=== PATIENT | female | born 1990 | race Caucasian/White ===

== ENCOUNTER 2016-09-09 20:04 | Emergency (ER) | payer MEDICAID ==
[2016-09-09 20:46] VITALS: BP 143/84
--- NOTE | 2016-09-09 20:51 | EDM.PDOC ---
ED HPI GENERAL MEDICAL PROBLEM - General Chief Complaint: ACOUSTICAL CARPENTER Problem Stated Complaint: spotting, positive test Time Seen by Provider: 09/09/16 20:28 Source of Information: Reports: Patient History Limitations: Reports: No limitations - History of Present Illness INITIAL COMMENTS - FREE TEXT/NARRATIVE: History of present illness: [26-year-old female coming in complaining of vaginal spotting with some small amount of cramping in the lower back. Patient indicates that she has taken urine test x3 at home with positive results and is concerned now at this juncture that she might be miscarrying. Will be evaluated.] Review of systems: As per history of present illness and below otherwise all systems reviewed and negative. Past medical history: As per history of present illness and as reviewed below otherwise noncontributory. Surgical history: As per history of present illness and as reviewed below otherwise noncontributory. Social history: No reported history of drug or alcohol abuse. Family history: As per history of present illness and as reviewed below otherwise noncontributory. Physical exam: HEENT: Atraumatic, normocephalic, pupils reactive, negative for conjunctival pallor or scleral icterus, mucous membranes moist, throat clear, neck supple, nontender, trachea midline. Lungs: Clear to auscultation, breath sounds equal bilaterally, chest nontender. Heart: S1S2, regular, negative for clicks, rubs, or JVD. Abdomen: Soft, nondistended, nontender. Negative for masses or hepatosplenomegaly. Negative for costovertebral tenderness. Pelvis: Stable nontender. Genitourinary: Deferred. Rectal: Deferred. Extremities: Atraumatic, negative for cords or calf pain. Neurovascular unremarkable. Neuro: Awake, alert, oriented. Cranial nerves II through XII unremarkable. Cerebellum unremarkable. Motor and sensory unremarkable throughout. Exam nonfocal. Diagnostics: [Urine test negative] Therapeutics: [] Impression: [Vaginal bleeding] Plan: [Followup with ACOUSTICAL CARPENTER] Definitive disposition and diagnosis as appropriate pending reevaluation and review of above. - Related Data Allergies Allergy/AdvReac Type Severity Reaction Status Date / Time azithromycin [From Zithromax] Allergy Nausea and Verified 09/09/16 20:21 Vomiting citalopram hydrobromide Allergy Shortness Verified 09/09/16 20:21 [From Celexa] of Breath codeine Allergy Chest Pain Verified 09/09/16 20:21 shrimp Allergy Hives Uncoded 09/09/16 20:21 Home Meds: Home Meds Ibuprofen [Advil] 400 mg PO Q4H PRN 11/16/14 [History] Cyclobenzaprine [Flexeril] 10 mg PO TID PRN 07/02/15 [History] clonazePAM [Clonazepam] 1 tab PO TID PRN 07/02/15 [History] Past Medical History - Past Health History Medical/Surgical History: Denies Medical/Surgical History Cardiovascular History: Reports: Other (see below) Other Cardiovascular History: states "I was told I have an irregular heart rate. " Is not on any medications for it. Gastrointestinal History: Reports: Helicobacter pylori, PUD Other Gastrointestinal History: H pylori Genitourinary History: Reports: Pyelonephritis ACOUSTICAL CARPENTER History: Reports: Polycystic Ovaries, Other (see below) Other OB/BYN History: cyst on right ovary Musculoskeletal History: Reports: Back pain, chronic, Fracture Neurological History: Reports: Concussion, Migraines Psychiatric History: Reports: Anxiety, Depression, Panic attack Endocrine/Metabolic History: Reports: Obesity/BMI 30+ - Past Surgical History HEENT Surgical History: Reports: Other (see below) Other HEENT Surgeries/Procedures: wisdom teeth removed GI Surgical History: Reports: Cholecystectomy Endocrine Surgical History: Reports: None Neurological Surgical History: Reports: None Social & Family History - Family History Family Medical History: Noncontributory - Tobacco Use Smoking Status *Q: Current Every Day Smoker Years of Tobacco use: 12 Packs/Tins Daily: 0.5 Used Tobacco, but Quit: Yes Month Tobacco Last Used: DECEMBER - Alcohol Use Days Per Week of Alcohol Use: 0 - Recreational Drug Use Recreational Drug Use: No Drug Use in Last 12 Months: No ED ROS GENERAL - Review of Systems Review Of Systems: See Below (See history of present illness) ED EXAM, GENERAL - Physical Exam Exam: See Below (See history of present illness) Course - Vital Signs Last Recorded V/S: Last Vital Signs Temp 36.9 C 09/09/16 20:05 Pulse 94 09/09/16 20:05 Resp 16 09/09/16 20:05 BP 143/84 H 09/09/16 20:46 Pulse Ox 98 09/09/16 20:05 - Orders/Labs/Meds Orders: Active Orders 24 hr Category Date Time Status CMP [COMPREHENSIVE METABOLIC PN,CMP] [CHEM] Stat Lab 09/09/16 20:18 Ordered Labs: Laboratory Tests 09/09/16 09/09/16 Range/Units 20:31 20:35 WBC 9.8 (5.0-10.0) 10^3/uL RBC 5.01 (4.00-5.50) 10^6/uL Hgb 14.3 (12.0-16.0) g/dL Hct 42.4 (37.0-47.0) % MCV 84.6 (82.0-94.0) fL MCH 28.5 (27.0-32.0) pg MCHC 33.7 (33.0-38.0) g/dL RDW Coeff of Laura 12.5 (11.0-15.0) % Plt Count 274 (150-400) 10^3/uL Neut % (Auto) 66.9 (35-85) % Lymph % (Auto) 23.1 (10-55) % [place] % (Auto) 7.0 (0-16) % Eos % (Auto) 2.8 (0-5) % Baso % (Auto) 0.2 (0-3) % Neut # 6.53 (1.80-7.00) 10^3/uL Lymph # 2.25 (1.00-4.80) 10^3/uL [place] # 0.68 (0.00-0.80) 10^3/uL Eos # 0.27 (0.00-0.45) 10^3/uL Baso # 0.02 10^3/uL Urine HCG, Qual Negative Departure - Departure Time of Disposition: 20:49 Disposition: Home, Self-Care 01 Condition: good Clinical Impression: Vaginal discharge Forms: ED Department Discharge Additional Instructions: The following information is given to patients seen in the emergency department who are being discharged to home. This information is to outline your options for follow-up care. We provide all patients seen in our emergency department with a follow-up referral. The need for follow-up, as well as the timing and circumstances, are variable depending upon the specifics of your emergency department visit. If you don't have a primary care physician on staff, we will provide you with a referral. We always advise you to contact your personal physician following an emergency department visit to inform them of the circumstance of the visit and for follow-up with them and/or the need for any referrals to a consulting specialist. The emergency department will also refer you to a specialist when appropriate. This referral assures that you have the opportunity for follow-up care with a specialist. All of these measure are taken in an effort to provide you with optimal care, which includes your follow-up. Under all circumstances we always encourage you to contact your private physician who remains a resource for coordinating your care. When calling for follow-up care, please make the office aware that this follow-up is from your recent emergency room visit. If for any reason you are refused follow-up, please contact the [facility] Emergency Department at and asked to speak to the emergency department charge nurse. Follow up with primary care provider and or ACOUSTICAL CARPENTER to evaluate issues with PCO S. as well as vaginal bleeding Return to ED as needed as discussed - My Orders Last 24 Hours: My Active Orders 09/09/16 20:18 CMP [COMPREHENSIVE METABOLIC PN,CMP] [CHEM] Stat - Assessment/Plan Last 24 Hours: My Active Orders 09/09/16 20:18 CMP [COMPREHENSIVE METABOLIC PN,CMP] [CHEM] Stat
[2016-09-09 20:53] LABS: CHLORIDE,CL 105 mEq/L (98-106); SODIUM,NA 142 mEq/L (136-145)
== END 2016-09-09 21:05 | disposition home or self-care (01) ==
LOC: CC.ED 20:04
DX: O20.9 Hemorrhage in early pregnancy, unspecified (principal); Z3A.00 Weeks of gestation of pregnancy not specified; E66.9 Obesity, unspecified; Z68.30 Body mass index [BMI] 30.0-30.9, adult; F17.200 Nicotine dependence, unspecified, uncomplicated
CPT/HCPCS: 36415; 80053; 81025; 85025; 99284

== ENCOUNTER 2016-12-10 23:08 | Emergency (ER) | payer MEDICAID ==
[2016-12-10] MEDS ORDERED: Lidocaine 1% 20 ML MDV ONE (23:25)
--- NOTE | 2016-12-10 23:38 | EDM.PDOC ---
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 Has history of boils in the past. States that the pain has increased tonight. No drainage noted from the area. Last boil is unknown. Onset: Gradual Location: Reports: Other (right labia area) Quality: Reports: Pressure Worsens with: Reports: Movement Associated Symptoms: Denies: Fever/Chills - Related Data Allergies Allergy/AdvReac Type Severity Reaction Status Date / Time azithromycin [From Zithromax] Allergy Nausea and Verified 09/09/16 20:21 Vomiting citalopram hydrobromide Allergy Shortness Verified 09/09/16 20:21 [From Celexa] of Breath codeine Allergy Chest Pain Verified 09/09/16 20:21 shrimp Allergy Hives Uncoded 09/09/16 20:21 Home Meds: Home Meds Ibuprofen [Advil] 400 mg PO Q4H PRN 11/16/14 [History] Cyclobenzaprine [Flexeril] 10 mg PO TID PRN 07/02/15 [History] clonazePAM [Clonazepam] 1 tab PO TID PRN 07/02/15 [History] Past Medical History - Past Health History Medical/Surgical History: Denies Medical/Surgical History Cardiovascular History: Reports: Other (See Below) Other Cardiovascular History: states "I was told I have an irregular heart rate. " Is not on any medications for it. 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 History: Reports: Polycystic Ovaries, Other (See Below) Other OB/BYN History: cyst on right ovary Musculoskeletal History: Reports: Back Pain, Chronic, Fracture Neurological History: Reports: Concussion, Migraines Psychiatric History: Reports: Anxiety, Depression, Panic Attack Endocrine/Metabolic History: Reports: Obesity/BMI 30+ - Past Surgical History HEENT Surgical History: Reports: Other (See Below) Social & Family History - Family History Family Medical History: Noncontributory - Tobacco Use Smoking Status *Q: Current Every Day Smoker Years of Tobacco use: 12 Packs/Tins Daily: 0.5 Used Tobacco, but Quit: Yes Month Tobacco Last Used: DECEMBER - Alcohol Use Days Per Week of Alcohol Use: 0 - Recreational Drug Use Recreational Drug Use: No Drug Use in Last 12 Months: No ED ROS GENERAL - Review of Systems Review Of Systems: See Below Constitutional: Denies: Fever, Chills Respiratory: Reports: No Symptoms Cardiovascular: Reports: No Symptoms GI/Abdominal: Reports: No Symptoms : Denies: Discharge, Dysuria Skin: Reports: Lumps (right labia area.) ED EXAM, SKIN/RASH Exam: See Below Exam Limited By: No Limitations General Appearance: Alert, Mild Distress (Female) Exam: Other (large boil to the right labia area that is tender with palpation, firm not red or warm to touch. No other swelling noted.) Neurological: Alert, Oriented Skin: Warm, Dry, Intact ED SKIN PROCEDURES - I&D Skin Prep: Saline Local Anesthesia: Lidocaine: 1% Plain Local Anesthetic Volume: 2cc Area Incised With: 11 Blade Drainage: Purulent, Bloody, Large Amount Probed to Break Up Loculations: No Packed With: None Sterile Dressinx4(s) Complications: No Departure - Departure Time of Disposition: 23:48 Disposition: Home, Self-Care 01 Clinical Impression: Boil of vulva - Discharge Information Forms: ED Department Discharge Additional Instructions: go home and sit in warm tub to soak bottom. Then try to squeeze out any further discharge Will call when culture returns if you need any antibiotics. Typically you do not need them Tylenol or advil as needed for discomfort Recheck in the clinic if not improved or if swelling returns and doesn't drain. - Problem List & Annotations (1) Boil of vulva SNOMED Code(s): 226121592 Code(s): N76.4 - ABSCESS OF VULVA Status: Acute Priority: High - Problem List Review Problem List Initiated/Reviewed/Updated: Yes
[2016-12-10 23:46] VITALS: BP 138/82
== END 2016-12-10 23:59 | disposition home or self-care (01) ==
LOC: CC.ED 23:08
DX: N76.4 Abscess of vulva (principal); F17.210 Nicotine dependence, cigarettes, uncomplicated; E66.9 Obesity, unspecified; Z79.899 Other long term (current) drug therapy; Z88.1 Allergy status to other antibiotic agents; Z88.5 Allergy status to narcotic agent; Z91.013 Allergy to seafood
CPT/HCPCS: 56405; 87070; 99283

== ENCOUNTER 2017-10-06 22:06 | Emergency (ER) | payer MEDICAID ==
[2017-10-06 22:14] VITALS: BP 151/87
--- NOTE | 2017-10-06 23:01 | EDM.PDOC ---
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 She is approximately 21 weeks gestation. Has had intermittent cramping through the last few weeks. Was started on progesterone shots every week for the cramping. States they have also been watching her blood pressure closely as that has been higher as of late. Patient denies having intercourse. No burning with urination. Has been eating and drinking well. No vaginal bleeding or discharge. Patient relates that she did have an ultrasound done at 19 weeks. Concerns per patient at that time as they weren't sure that it was a 3 vessel cord. History of prematurity with last child. Duration: Hour(s): Severity: Moderate Lower Abdominal Pain Score (Numeric/FACES): 7 - Related Data Allergies Allergy/AdvReac Type Severity Reaction Status Date / Time azithromycin [From Zithromax] Allergy Nausea and Verified 12/11/16 01:45 Vomiting citalopram hydrobromide Allergy Shortness Verified 12/11/16 01:45 [From Celexa] of Breath codeine Allergy Chest Pain Verified 12/11/16 01:45 lidocaine Allergy Respiratory Verified 10/06/17 22:08 Depression shrimp Allergy Hives Uncoded 12/11/16 01:45 Home Meds: Home Meds Acetaminophen [Tylenol] 650 mg PO Q8H PRN 10/06/17 [History] Progesterone 1 ml IM Q7D 10/06/17 [History] Past Medical History - Past Health History Medical/Surgical History: Denies Medical/Surgical History Cardiovascular History: Reports: Arrhythmia Other Cardiovascular History: states "I was told I have an irregular heart rate. " Is not on any medications for it. 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 MARKETING History: Reports: Polycystic Ovaries, , Other (See Below) Other OB/BYN History: cyst on right ovary Musculoskeletal History: Reports: Back Pain, Chronic, Fracture Neurological History: Reports: Headaches, Chronic, Migraines Psychiatric History: Reports: Anxiety, Depression, Panic Attack Endocrine/Metabolic History: Reports: Obesity/BMI 30+ - Past Surgical History Cardiovascular Surgical History: Reports: None GI Surgical History: Reports: Cholecystectomy, EGD Female Surgical History: Reports: None Endocrine Surgical History: Reports: None Neurological Surgical History: Reports: None Musculoskeletal Surgical History: Reports: None Social & Family History - Family History Family Medical History: Noncontributory - Tobacco Use Smoking Status *Q: Current Every Day Smoker Years of Tobacco use: 13 Packs/Tins Daily: 1 Used Tobacco, but Quit: Yes Month/Year Tobacco Last Used: DECEMBER - Alcohol Use Days Per Week of Alcohol Use: 0 - Recreational Drug Use Recreational Drug Use: No Drug Use in Last 12 Months: No ED ROS GENERAL - Review of Systems Review Of Systems: See Below Constitutional: Denies: Fever, Chills, Malaise, Weakness, Decreased Appetite HEENT: Reports: No Symptoms Respiratory: Reports: No Symptoms Cardiovascular: Reports: No Symptoms Endocrine: Reports: No Symptoms GI/Abdominal: Denies: Nausea : Reports: Other (increased vaginal cramping). Denies: Discharge Skin: Reports: No Symptoms Neurological: Reports: No Symptoms ED EXAM - Physical Exam Exam: See Below Exam Limited By: No Limitations General Appearance: Alert, WD/WN, No Apparent Distress Respiratory/Chest: No Respiratory Distress, Lungs Clear, Normal Breath Sounds Cardiovascular: Regular Rate, Rhythm GI/Abdominal Exam: Tender (Female) Exam: No: Vaginal Bleeding Heart Tones: Present Heart Tones per Min: 140 Movement: Not Appreciated Back Exam: Normal Inspection, Full Range of Motion Extremities: Normal Inspection Neurological: Alert, Oriented Skin Exam: Warm, Dry Course - Vital Signs Last Recorded V/S: Last Vital Signs Temp 97.8 F 10/06/17 22:11 Pulse 94 10/06/17 22:11 Resp 18 10/06/17 22:11 BP 151/87 H 10/06/17 22:11 Pulse Ox 99 10/06/17 22:11 - Orders/Labs/Meds Orders: Active Orders 24 hr Category Date Time Status UA W/MICROSCOPIC [URIN] Urgent Lab 10/06/17 22:33 Ordered Labs: Laboratory Tests 10/06/17 Range/Units 22:33 Urine Color Yellow (YELLOW) Urine Appearance Slightly cloudy (CLEAR) Urine pH 5.5 (4.5-8.0) Ur Specific [place] 1.020 (1.003-1.020) Urine Protein Negative (NEGATIVE) mg/dL Urine Glucose (UA) Negative (NEGATIVE) mg/dL Urine Ketones Negative (NEGATIVE) mg/dL Urine Occult Blood Negative (NEGATIVE) Urine Nitrite Negative (NEGATIVE) Urine Bilirubin Negative (NEGATIVE) Urine Urobilinogen 0.2 (0.2-1.0) EU/dL Ur Leukocyte Esterase Negative (NEGATIVE) Urine RBC Not seen (0-5) /HPF Urine WBC 0-5 (0-5) /HPF Ur Epithelial Cells Few H (NOT SEEN) /HPF Urine Bacteria Few H (NOT SEEN) /HPF Urine Mucus Few H (NOT SEEN) /HPF - Re-Assessments/Exams Free Text/Narrative Re-Assessment/Exam: 10/06/17 23:10 Urine clear. heart tones positive at 140 bpm. Did notify [facility] Departure - Departure Time of Disposition: 23:11 Disposition: Home, Self-Care 01 Condition: Good Clinical Impression: Pain in pelvis - Discharge Information Additional Instructions: 1. Rest 2. Push fluids 3. Usual meds as advised 4. Contact Dr. Hutchinson office tomorrow if continue to have ongoing concerns of movement as further testing/monitoring may be warranted 5. Call with any questions - My Orders Last 24 Hours: My Active Orders 10/06/17 22:33 UA W/MICROSCOPIC [URIN] Urgent - Assessment/Plan Last 24 Hours: My Active Orders 10/06/17 22:33 UA W/MICROSCOPIC [URIN] Urgent
== END 2017-10-06 23:18 | disposition home or self-care (01) ==
LOC: CC.ED 22:06
DX: O99.89 Other specified diseases and conditions complicating pregnancy, childbirth and the puerperium (principal); R10.2 Pelvic and perineal pain; O99.332 Smoking (tobacco) complicating pregnancy, second trimester; F17.210 Nicotine dependence, cigarettes, uncomplicated; Z88.1 Allergy status to other antibiotic agents; Z88.8 Allergy status to other drugs, medicaments and biological substances; Z88.5 Allergy status to narcotic agent; Z91.013 Allergy to seafood; Z3A.21 21 weeks gestation of pregnancy
CPT/HCPCS: 81001; 99284

== ENCOUNTER 2018-01-05 04:28 | Emergency (ER) | payer MEDICAID ==
[2018-01-05 04:33] VITALS: BP 146/87
--- NOTE | 2018-01-05 04:56 | EDM.PDOC ---
ED HPI GENERAL MEDICAL PROBLEM - General Chief Complaint: General Stated Complaint: dizzy, faint, SOB (34 weeks ) Time Seen by Provider: 01/05/18 04:30 Source of Information: Reports: Patient History Limitations: Reports: No Limitations - History of Present Illness INITIAL COMMENTS - FREE TEXT/NARRATIVE: This patient is a 27 year old female that presents to the ER via EMS. Patient reports she is 34 weeks . She is G4, P3, A0. Patient reports she was recently diagnosed with gestational diabetes. Patient reports that at about 3: 30am she was at home and felt lightheaded. She reports that she also felt nauseated and mildly short of breath. She reports this was made worse with sitting up or standing. Patient denies guidry, v, d, f, neck pain, neck stiffness, cp, abd pain, pelvic pain, pelvic cramping, vaginal bleeding, contractions, urinary/bowel changes, back pain. She reports the baby has been moving and acting without changes. Patient denies unilateral weaknesses. She is alert and oriented. Patient reports that sometimes she gets a little nervous and comes to the hospital as soon as things happen because [place] so [place] out. She reports that being here, she is starting to feel much better. Onset: Today Onset Date: 01/05/18 Onset Time: 03:30 Severity: Mild Improves with: Reports: None Worsens with: Reports: None Associated Symptoms: Reports: Shortness of Breath. Denies: Confusion, Chest Pain, Cough, cough w sputum, Diaphoresis, Fever/Chills, Headaches, Loss of Appetite, Malaise, Nausea/Vomiting, Rash, Seizure, Syncope, Weakness - Related Data Allergies Allergy/AdvReac Type Severity Reaction Status Date / Time azithromycin [From Zithromax] Allergy Nausea and Verified 01/05/18 04:33 Vomiting citalopram hydrobromide Allergy Shortness Verified 01/05/18 04:33 [From Celexa] of Breath codeine Allergy Chest Pain Verified 01/05/18 04:33 lidocaine Allergy Respiratory Verified 01/05/18 04:33 Depression shrimp Allergy Hives Uncoded 01/05/18 04:33 Home Meds: Home Meds Acetaminophen [Tylenol] 650 mg PO Q8H PRN 10/06/17 [History] Progesterone 1 ml IM WE 10/06/17 [History] metFORMIN HCl [Glucophage] 500 mg PO BID 01/05/18 [History] Past Medical History - Past Health History Medical/Surgical History: Denies Medical/Surgical History Cardiovascular History: Reports: Arrhythmia Other Cardiovascular History: states "I was told I have an irregular heart rate. " Is not on any medications for it. 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: Reports: Polycystic Ovaries, , Other (See Below) Other SENIOR CHEMICAL ENGINEER History: cyst on right ovary Musculoskeletal History: Reports: Back Pain, Chronic, Fracture Neurological History: Reports: Headaches, Chronic, Migraines Psychiatric History: Reports: Anxiety, Depression, Panic Attack Endocrine/Metabolic History: Reports: Obesity/BMI 30+ - Past Surgical History Cardiovascular Surgical History: Reports: None GI Surgical History: Reports: Cholecystectomy, EGD Female Surgical History: Reports: None Endocrine Surgical History: Reports: None Neurological Surgical History: Reports: None Musculoskeletal Surgical History: Reports: None Social & Family History - Family History Family Medical History: Noncontributory - Tobacco Use Smoking Status *Q: Current Every Day Smoker Years of Tobacco use: 15 Packs/Tins Daily: 0.2 - Recreational Drug Use Recreational Drug Use: No ED ROS GENERAL - Review of Systems Review Of Systems: See Below Constitutional: Reports: No Symptoms HEENT: Reports: No Symptoms Respiratory: Reports: Shortness of Breath. Denies: Wheezing, Pleuritic Chest Pain, Cough, Sputum, Hemoptysis Cardiovascular: Reports: Lightheadedness. Denies: Chest Pain, Edema, Syncope Endocrine: Reports: No Symptoms GI/Abdominal: Reports: Nausea, Other (Denies pelvic pain, cramping, vaginal bleeding, back pain. ). Denies: Abdominal Pain, Diarrhea, Vomiting : Reports: No Symptoms. Denies: Discharge, Dysuria, Flank Pain, Hematuria, Incontinence, Urinary Retention Musculoskeletal: Reports: No Symptoms Skin: Reports: No Symptoms Neurological: Reports: No Symptoms Psychiatric: Reports: No Symptoms Hematologic/Lymphatic: Reports: No Symptoms Immunologic: Reports: No Symptoms ED EXAM, GENERAL - Physical Exam Exam: See Below Exam Limited By: No Limitations General Appearance: Alert, WD/WN, No Apparent Distress Eye Exam: Bilateral Eye: EOMI, Normal Inspection, PERRL Ears: Normal External Exam, Normal Canal, Hearing Grossly Normal, Normal TMs Ear Exam: Bilateral Ear: Auricle Normal, Canal Normal, TM normal Nose: Normal Inspection, Normal Mucosa Throat/Mouth: Normal Inspection, Normal Lips, Normal Teeth, Normal Gums, Normal Oropharynx, Normal Voice, No Airway Compromise Head: Atraumatic, Normocephalic Neck: Normal Inspection, Supple, Non-Tender, Full Range of Motion Respiratory/Chest: No Respiratory Distress, Lungs Clear, Normal Breath Sounds, No Accessory Muscle Use Cardiovascular: Normal Peripheral Pulses, Regular Rate, Rhythm, No Edema, No Gallop, No JVD, No Murmur, No Rub Peripheral Pulses: 2+: Radial (L), Radial (R), Posterior Tibial (L), Posterior Tibial (R), Dorsalis Pedis (L), Dorsalis Pedis (R) GI/Abdominal: Normal Bowel Sounds, Soft, Non-Tender, No Organomegaly, No Distention, No Abnormal Bruit, No Mass, Pelvis Stable, Other ( Abdomen) (Female) Exam: Heart Tones (150, just about 1/2 inch below umbilicus, 1 /4 inch left. ) Rectal (Female) Exam: Deferred Back Exam: Normal Inspection, Full Range of Motion. No: CVA Tenderness (L), CVA Tenderness (R), Decreased Range of Motion, Muscle Spasm, Paraspinal Tenderness, Vertebral Tenderness Extremities: Normal Inspection, Normal Range of Motion, Non-Tender, No Pedal Edema, Normal Capillary Refill Neurological: Alert, Oriented, CN II-XII Intact, Normal Gait, No Motor/Sensory Deficits Psychiatric: Normal Affect, Normal Mood Skin Exam: Warm, Dry, Intact, Normal Color, No Rash Lymphatic: No Adenopathy Course - Vital Signs Last Recorded V/S: Last Vital Signs Temp 98.6 F 01/05/18 04:30 Pulse 94 01/05/18 04:30 Resp 20 01/05/18 04:30 BP 146/87 H 01/05/18 04:30 Pulse Ox 98 01/05/18 04:30 Orthostatic Blood Pressure [ 136/82 Supine] - Orders/Labs/Meds Orders: Active Orders 24 hr Category Date Time Status Orthostatic Vital Signs [RC] ASDIRECTED Care 01/05/18 04:25 Active DRUG SCREEN URINE BIORAD [URCHEM] Stat Lab 01/05/18 04:52 Ordered UA W/MICROSCOPIC [URIN] Stat Lab 01/05/18 04:52 Ordered Sodium Chloride 0.9% [Normal Saline] 1,000 ml Med 01/05/18 04:56 Active IV .BOLUS Medication Orders Sodium Chloride (Normal Saline) 1,000 mls @ 1,000 mls/hr IV .BOLUS ONE Stop: 01/05/18 05:55 Last Admin: 01/05/18 05:14 Dose: 1,000 mls/hr Labs: Laboratory Tests 01/05/18 01/05/18 01/05/18 Range/Units 04:25 04:25 04:52 WBC 7.8 (5.0-10.0) 10^3/uL RBC 4.08 (4.00-5.50) 10^6/uL Hgb 11.7 L (12.0-16.0) g/dL Hct 34.2 L (37.0-47.0) % MCV 83.8 (82.0-94.0) fL MCH 28.7 (27.0-32.0) pg MCHC 34.2 (33.0-38.0) g/dL RDW Coeff of Laura 13.3 (11.0-15.0) % Plt Count 174 (150-400) 10^3/uL Neut % (Auto) 67.0 (35-85) % Lymph % (Auto) 21.3 (10-55) % [place] % (Auto) 9.6 (0-16) % Eos % (Auto) 1.8 (0-5) % Baso % (Auto) 0.3 (0-3) % Neut # (Auto) 5.24 (1.80-7.00) 10^3/uL Lymph # (Auto) 1.66 (1.00-4.80) 10^3/uL [place] # (Auto) 0.75 (0.00-0.80) 10^3/uL Eos # (Auto) 0.14 (0.00-0.45) 10^3/uL Baso # (Auto) 0.02 10^3/uL Sodium 139 (136-145) mEq/L Potassium 3.3 L D (3.5-5.0) mEq/L Chloride 103 (98-106) mEq/L Carbon Dioxide 23 (21-32) mmol/L BUN 5 L D (7-18) mg/dL Creatinine 0.7 (0.6-1.0) mg/dL Est Cr Clr Drug Dosing 99.86 mL/min Estimated GFR (MDRD) > 60 (>=60) mL/min Glucose 154 H D (75-99) mg/dL Calcium 9.3 (8.4-10.1) mg/dL Total Bilirubin 0.2 (0.0-1.0) mg/dL AST 13 L (15-37) U/L ALT 10 L (12-78) U/L Alkaline Phosphatase 64 (46-116) U/L Total Protein 5.8 L (6.4-8.2) g/dL Albumin 2.4 L (3.4-5.0) g/dL Urine Color Yellow (YELLOW) Urine Appearance Clear (CLEAR) Urine pH 6.5 (4.5-8.0) Ur Specific Hensel 1.020 (1.003-1.020) Urine Protein Negative (NEGATIVE) mg/dL Urine Glucose (UA) Negative (NEGATIVE) mg/dL Urine Ketones Negative (NEGATIVE) mg/dL Urine Occult Blood Negative (NEGATIVE) Urine Nitrite Negative (NEGATIVE) Urine Bilirubin Negative (NEGATIVE) Urine Urobilinogen 0.2 (0.2-1.0) EU/dL Ur Leukocyte Esterase Negative (NEGATIVE) Urine RBC Not seen (0-5) /HPF Urine WBC Not seen (0-5) /HPF Urine Opiates Screen (NEGATIVE) Ur Oxycodone Screen (NEGATIVE) Urine Methadone Screen (NEGATIVE) Ur Barbiturates Screen (NEGATIVE) U Tricyclic Antidepress (NEGATIVE) Ur Phencyclidine Scrn (NEGATIVE) Ur Amphetamine Screen (NEGATIVE) U Methamphetamines Scrn (NEGATIVE) Urine MDMA Screen (NEGATIVE) U Benzodiazepines Scrn (NEGATIVE) Urine Cocaine Screen (NEGATIVE) U Marijuana (THC) Screen (NEGATIVE) 01/05/18 Range/Units 04:52 WBC (5.0-10.0) 10^3/uL RBC (4.00-5.50) 10^6/uL Hgb (12.0-16.0) g/dL Hct (37.0-47.0) % MCV (82.0-94.0) fL MCH (27.0-32.0) pg MCHC (33.0-38.0) g/dL RDW Coeff of Laura (11.0-15.0) % Plt Count (150-400) 10^3/uL Neut % (Auto) (35-85) % Lymph % (Auto) (10-55) % [place] % (Auto) (0-16) % Eos % (Auto) (0-5) % Baso % (Auto) (0-3) % Neut # (Auto) (1.80-7.00) 10^3/uL Lymph # (Auto) (1.00-4.80) 10^3/uL [place] # (Auto) (0.00-0.80) 10^3/uL Eos # (Auto) (0.00-0.45) 10^3/uL Baso # (Auto) 10^3/uL Sodium (136-145) mEq/L Potassium (3.5-5.0) mEq/L Chloride (98-106) mEq/L Carbon Dioxide (21-32) mmol/L BUN (7-18) mg/dL Creatinine (0.6-1.0) mg/dL Est Cr Clr Drug Dosing mL/min Estimated GFR (MDRD) (>=60) mL/min Glucose (75-99) mg/dL Calcium (8.4-10.1) mg/dL Total Bilirubin (0.0-1.0) mg/dL AST (15-37) U/L ALT (12-78) U/L Alkaline Phosphatase (46-116) U/L Total Protein (6.4-8.2) g/dL Albumin (3.4-5.0) g/dL Urine Color (YELLOW) Urine Appearance (CLEAR) Urine pH (4.5-8.0) Ur Specific Hensel (1.003-1.020) Urine Protein (NEGATIVE) mg/dL Urine Glucose (UA) (NEGATIVE) mg/dL Urine Ketones (NEGATIVE) mg/dL Urine Occult Blood (NEGATIVE) Urine Nitrite (NEGATIVE) Urine Bilirubin (NEGATIVE) Urine Urobilinogen (0.2-1.0) EU/dL Ur Leukocyte Esterase (NEGATIVE) Urine RBC (0-5) /HPF Urine WBC (0-5) /HPF Urine Opiates Screen Negative (NEGATIVE) Ur Oxycodone Screen Negative (NEGATIVE) Urine Methadone Screen Negative (NEGATIVE) Ur Barbiturates Screen Negative (NEGATIVE) U Tricyclic Antidepress Negative (NEGATIVE) Ur Phencyclidine Scrn Negative (NEGATIVE) Ur Amphetamine Screen Negative (NEGATIVE) U Methamphetamines Scrn Negative (NEGATIVE) Urine MDMA Screen Negative (NEGATIVE) U Benzodiazepines Scrn Negative (NEGATIVE) Urine Cocaine Screen Negative (NEGATIVE) U Marijuana (THC) Screen Negative (NEGATIVE) Meds: Medications Generic Name Dose Route Start Last Admin Trade Name Freq PRN Reason Stop Dose Admin Sodium Chloride 1,000 mls @ 1,000 mls/hr 01/05/18 04:56 01/05/18 05:14 Normal Saline IV 01/05/18 05:55 1,000 mls/hr .BOLUS ONE Administration Discontinued Medications Generic Name Dose Route Start Last Admin Trade Name Freq PRN Reason Stop Dose Admin Ondansetron HCl 4 mg 01/05/18 04:56 01/05/18 05:11 Zofran IVPUSH 01/05/18 04:57 4 mg NOW STA Administration Potassium Chloride 40 meq 01/05/18 05:10 Klor-Con 10 PO 01/05/18 05:11 ONETIME ONE - Re-Assessments/Exams Free Text/Narrative Re-Assessment/Exam: 01/05/18 05:10 Patient BP is now 136/82 on recheck. HR is 88. The patient has no protein in urine, liver enzymes not elevated, platelet normal, BUN/CR normal, no edema. Patient has no visual disturbances or headache. Very low suspicion for [place]. The patient oxygen saturation is 98% RA recheck. She is not in acute respiratory distress. PE low risk. Labs are unremarkable, except mildly low potassium, will give 1L NS and potassium and discharge home. Patient is educated to call her OB in a couple of hours and followup with them in office. Departure - Departure Time of Disposition: 05:14 Disposition: Home, Self-Care 01 Condition: Fair Clinical Impression: Hypokalemia, Lightheaded, and not yet delivered in third trimester - Discharge Information Instructions: Third Trimester of , [id number], Hypokalemia Forms: ED Department Discharge Additional Instructions: Followup with your OB, call them this morning. Followup with your primary care provider Return to the ER for worsening of condition or any emergent concerns Increase fluids Go home and rest Eat foods high in potassium like bananas, yogurt, spinach, sweet potato, broccoli - My Orders Last 24 Hours: My Active Orders 01/05/18 04:25 Orthostatic Vital Signs [RC] ASDIRECTED 01/05/18 04:52 DRUG SCREEN URINE BIORAD [URCHEM] Stat UA W/MICROSCOPIC [URIN] Stat 01/05/18 04:56 Sodium Chloride 0.9% [Normal Saline] 1,000 ml IV .BOLUS - Assessment/Plan Last 24 Hours: My Active Orders 01/05/18 04:25 Orthostatic Vital Signs [RC] ASDIRECTED 01/05/18 04:52 DRUG SCREEN URINE BIORAD [URCHEM] Stat UA W/MICROSCOPIC [URIN] Stat 01/05/18 04:56 Sodium Chloride 0.9% [Normal Saline] 1,000 ml IV .BOLUS Plan: PLEASE SEE RN NOTE FOR PFSH.
[2018-01-05 04:57] LABS: CHLORIDE,CL 103 mEq/L (98-106); SODIUM,NA 139 mEq/L (136-145)
[2018-01-05] MEDS: Ondansetron 4 MG/2 ML SDV IVPUSH STA (05:11)
[2018-01-05] MEDS: Sodium Chloride 0.9% 1,000 ML IV ONE (05:14)
[2018-01-05] MEDS: Potassium Chloride 10 MEQ Tab.ER PO ONE (05:18)
== END 2018-01-05 06:20 | disposition home or self-care (01) ==
LOC: CC.ED 04:28
DX: O99.283 Endocrine, nutritional and metabolic diseases complicating pregnancy, third trimester (principal); E87.6 Hypokalemia; O99.333 Smoking (tobacco) complicating pregnancy, third trimester; F17.210 Nicotine dependence, cigarettes, uncomplicated; Z88.5 Allergy status to narcotic agent; Z91.013 Allergy to seafood; Z88.1 Allergy status to other antibiotic agents; Z88.8 Allergy status to other drugs, medicaments and biological substances; Z3A.34 34 weeks gestation of pregnancy
CPT/HCPCS: 36415; 80053; 80305-QW; 81001; 85025; 96361; 96374; 99285; A9270-GY; J2405; J7030

== ENCOUNTER 2018-06-20 23:14 | Emergency (ER) | payer MEDICAID ==
[2018-06-20 23:18] VITALS: BP 163/88
--- NOTE | 2018-06-20 23:36 | EDM.PDOC ---
ED HPI GENERAL MEDICAL PROBLEM - General Chief Complaint: Upper Extremity Injury/Pain Stated Complaint: finger injury Time Seen by Provider: 06/20/18 23:25 Source of Information: Reports: Patient History Limitations: Reports: No Limitations - History of Present Illness INITIAL COMMENTS - FREE TEXT/NARRATIVE: c/o shut her right hand in a car door about 1830 today, has pain in the right hand, 3rd igit distal end, no other hand or wrist pain, no numbness or tingling , no redness or swelling, there is a bruise of the nail Onset: Today Onset Date: 06/20/18 Onset Time: 18:30 Duration: Hour(s): Location: Reports: Upper Extremity, Right Quality: Reports: Ache Severity: Mild Improves with: Reports: None Worsens with: Reports: Movement Context: Reports: Trauma (shut in a car door) Associated Symptoms: Reports: No Other Symptoms 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 Right Hand Pain Score (Numeric/FACES): 7 - Related Data Allergies Allergy/AdvReac Type Severity Reaction Status Date / Time azithromycin [From Zithromax] Allergy Nausea and Verified 06/20/18 23:18 Vomiting citalopram hydrobromide Allergy Shortness Verified 06/20/18 23:18 [From Celexa] of Breath lidocaine Allergy Respiratory Verified 06/20/18 23:18 Depression shrimp Allergy Hives Uncoded 01/05/18 04:33 Home Meds: Home Meds Acetaminophen [Tylenol] 650 mg PO Q8H PRN 10/06/17 [History] Past Medical History - Past Health History Medical/Surgical History: Denies Medical/Surgical History Cardiovascular History: Reports: Arrhythmia Other Cardiovascular History: states "I was told I have an irregular heart rate. " Is not on any medications for it. 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: cyst on right ovary Musculoskeletal History: Reports: Back Pain, Chronic, Fracture Neurological History: Reports: Headaches, Chronic, Migraines Psychiatric History: Reports: Anxiety, Depression, Panic Attack Endocrine/Metabolic History: Reports: Obesity/BMI 30+ - Past Surgical History Cardiovascular Surgical History: Reports: None GI Surgical History: Reports: Cholecystectomy, EGD Female Surgical History: Reports: None Endocrine Surgical History: Reports: None Neurological Surgical History: Reports: None Musculoskeletal Surgical History: Reports: None Social & Family History - Family History Cardiac: Reports: Hypertension - Tobacco Use Smoking Status *Q: Current Every Day Smoker - Alcohol Use Alcohol Use History: No - Recreational Drug Use Recreational Drug Use: No - Living Situation & Occupation Living situation: Reports: with Family Review of Systems - Review of Systems Review Of Systems: See Below Constitutional: Reports: No Symptoms Respiratory: Reports: No Symptoms Cardiovascular: Reports: No Symptoms GI/Abdominal: Reports: No Symptoms Musculoskeletal: Reports: Hand Pain (right hand, 3rd digit). Denies: Neck Pain Skin: Reports: No Symptoms Neurological: Reports: No Symptoms. Denies: Numbness, Tingling Psychiatric: Reports: No Symptoms ED EXAM, GENERAL - Physical Exam Exam: See Below Exam Limited By: No Limitations General Appearance: Alert, WD/WN, No Apparent Distress Neck: Normal Inspection, Supple, Non-Tender, Full Range of Motion Respiratory/Chest: No Respiratory Distress, Lungs Clear, Normal Breath Sounds, No Accessory Muscle Use Cardiovascular: Normal Peripheral Pulses, Regular Rate, Rhythm, No Edema Peripheral Pulses: 2+: Radial (R) Back Exam: Normal Inspection, Full Range of Motion Extremities: Normal Range of Motion, Normal Capillary Refill, Other (pain distal end of third digit right hand with a small bruise in the proximal nail bed). No: Normal Inspection Neurological: Alert, Oriented, Normal Cognition, Normal Gait, No Motor/Sensory Deficits Psychiatric: Normal Affect, Normal Mood Skin Exam: Warm, Dry, Intact, Normal Color ED TRAUMA EXTREMITY PROCEDURES - Splinting 3rd Digit Pre-Procedure NV Status: Normal Post-Procedure NV Status: Normal Splint Material: Aluminum-Foam Splint Design: Volar Applied & Form Fitted By: Provider Provider Post-Splint Application NV Check: NV Status Normal, Good Position Complications: No Course - Vital Signs Last Recorded V/S: Last Vital Signs Temp 36.6 C 06/20/18 23:15 Pulse 81 06/20/18 23:15 Resp 16 06/20/18 23:15 BP 163/88 H 06/20/18 23:15 Pulse Ox 97 06/20/18 23:15 - Orders/Labs/Meds Orders: Active Orders 24 hr Category Date Time Status Hand Comp Min 3V Rt [CR] Stat Exams 06/20/18 23:25 Ordered - Radiology Interpretation Free Text/Narrative:: xray right hand only on the lateral view shows what I suspect is a tuft fx of the 3rd digit, there is some white marking on the hand that is paint Departure - Departure Time of Disposition: 23:36 Disposition: Home, Self-Care 01 Condition: Good Clinical Impression: Fracture, finger, distal phalanx - Discharge Information *PRESCRIPTION DRUG MONITORING PROGRAM REVIEWED*: Not Applicable *COPY OF PRESCRIPTION DRUG MONITORING REPORT IN PATIENT GEORGE: Not Applicable Instructions: Finger Fracture Forms: ED Department Discharge Additional Instructions: elevate hand on 2 pillows ice off and on x 2 days alternate tylenol and motrin as needed for pain wear the splint as discussed follow up with your family doctor this next week, call Friday for an appointment time return to the ED as needed - Problem List & Annotations (1) Fracture, finger, distal phalanx SNOMED Code(s): 98001460 Code(s): S62.639A - DISP FX OF DISTAL PHALANX OF UNSP FINGER, INIT FOR CLOS FX Status: Acute Priority: Medium Onset Date: ~06/20/18 Qualifiers: Encounter type: initial encounter Finger: middle finger Fracture type: closed Fracture alignment: nondisplaced Laterality: right Qualified Code(s ): S62.662A - Nondisplaced fracture of distal phalanx of right middle finger, initial encounter for closed fracture - Problem List Review Problem List Initiated/Reviewed/Updated: Yes - My Orders Last 24 Hours: My Active Orders 06/20/18 23:25 Hand Comp Min 3V Rt [CR] Stat - Assessment/Plan Last 24 Hours: My Active Orders 06/20/18 23:25 Hand Comp Min 3V Rt [CR] Stat Plan: dc home RICE protocol f/u with pcp this week
== END 2018-06-20 23:50 | disposition home or self-care (01) ==
LOC: CC.ED 23:14
DX: S62.662A Nondisplaced fracture of distal phalanx of right middle finger, initial encounter for closed fracture (principal); I10 Essential (primary) hypertension; F17.210 Nicotine dependence, cigarettes, uncomplicated; W23.0XXA Caught, crushed, jammed, or pinched between moving objects, initial encounter
CPT/HCPCS: 73130-RT; 99283

== ENCOUNTER 2019-04-17 14:19 | Emergency (ER) | payer MEDICAID ==
[2019-04-17 14:26] VITALS: BP 138/83; PULSE 85
--- NOTE | 2019-04-17 14:59 | EDM.PDOC ---
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 She reports she is 6 wks post and 4 wks status post tubal. She reports that she started with menstrual bleeding and what she presumed to be return of her menstrual cycle 2 days ago. She reports she noticed she passed a "golf ball size clot" this morning. Reports she called ask a nurse and they recommended she be evaluated. SHe denies any dizziness, lightheadedness, chest pain, shortness of breath, abdominal pain, N/V/D. She does have mild cramping, but otherwise has no other concerns. Onset: Today Associated Symptoms: Reports: No Other Symptoms Uterine Pain Score (Numeric/FACES): 4 - Related Data Allergies Allergy/AdvReac Type Severity Reaction Status Date / Time azithromycin [From Zithromax] Allergy Nausea and Verified 04/17/19 14:22 Vomiting citalopram hydrobromide Allergy Shortness Verified 04/17/19 14:22 [From Celexa] of Breath lidocaine Allergy Respiratory Verified 04/17/19 14:22 Depression shrimp Allergy Hives Uncoded 04/17/19 14:22 Home Meds: Home Meds Acetaminophen [Tylenol] 650 mg PO Q8H PRN 10/06/17 [History] Past Medical History - Past Health History Medical/Surgical History: Denies Medical/Surgical History HEENT History: Reports: Otitis Media Cardiovascular History: Reports: Arrhythmia Other Cardiovascular History: states "I was told I have an irregular heart rate. " Is not on any medications for it. 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 FRIER History: Reports: Polycystic Ovaries, , Other (See Below) Other POTATO PANCAKE FRIER History: cyst on right ovary Musculoskeletal History: Reports: Back Pain, Chronic, Fracture Neurological History: Reports: Concussion, Headaches, Chronic, Migraines Psychiatric History: Reports: Anxiety, Depression, Panic Attack Endocrine/Metabolic History: Reports: Obesity/BMI 30+ - Infectious Disease History Infectious Disease History: Reports: Other (See Below) Other Infectious Disease History: "staph infection" - Past Surgical History HEENT Surgical History: Reports: None Cardiovascular Surgical History: Reports: None Respiratory Surgical History: Reports: None GI Surgical History: Reports: Cholecystectomy, EGD Female Surgical History: Reports: Tubal Ligation Endocrine Surgical History: Reports: None Neurological Surgical History: Reports: None Musculoskeletal Surgical History: Reports: None Social & Family History - Family History Family Medical History: Noncontributory Cardiac: Reports: Hypertension - Tobacco Use Smoking Status *Q: Former Smoker Used Tobacco, but Quit: Yes Month/Year Tobacco Last Used: 09/2018 - Caffeine Use Caffeine Use: Reports: Coffee - Recreational Drug Use Recreational Drug Use: No - Living Situation & Occupation Living situation: Reports: with Family ED ROS GENERAL - Review of Systems Review Of Systems: ROS reveals no pertinent complaints other than HPI. ED EXAM, GI/ABD - Physical Exam Exam: See Below Exam Limited By: No Limitations General Appearance: Alert, WD/WN, No Apparent Distress, Obese Neck: Normal Inspection, Supple, Non-Tender, Full Range of Motion Respiratory/Chest: No Respiratory Distress, Lungs Clear, Normal Breath Sounds, No Accessory Muscle Use, Chest Non-Tender Cardiovascular: Normal Peripheral Pulses, Regular Rate, Rhythm, No Edema, No Gallop, No JVD, No Murmur, No Rub GI/Abdominal Exam: Normal Bowel Sounds, Soft, Non-Tender, No Organomegaly, No Distention, No Abnormal Bruit, No Mass, Pelvis Stable Psychiatric: Normal Affect, Normal Mood Skin Exam: Warm, Dry, Intact, Normal Color, No Rash Course - Vital Signs Last Recorded V/S: Last Vital Signs Temp 97.2 F 04/17/19 14:22 Pulse 85 04/17/19 14:22 Resp 18 04/17/19 14:22 BP 138/83 04/17/19 14:22 Pulse Ox 97 04/17/19 14:22 - Orders/Labs/Meds Labs: Laboratory Tests 04/17/19 04/17/19 Range/Units 14:58 14:59 WBC 6.5 (5.0-10.0) 10^3/uL RBC 4.89 (4.00-5.50) 10^6/uL Hgb 13.7 (12.0-16.0) g/dL Hct 40.0 (37.0-47.0) % MCV 81.8 L (82.0-94.0) fL MCH 28.0 (27.0-32.0) pg MCHC 34.3 (33.0-38.0) g/dL RDW Coeff of Laura 13.2 (11.0-15.0) % Plt Count 220 (150-400) 10^3/uL Neut % (Auto) 58.2 (35-85) % Lymph % (Auto) 29.6 (10-55) % [place] % (Auto) 10.0 (0-16) % Eos % (Auto) 2.0 (0-5) % Baso % (Auto) 0.2 (0-3) % Neut # (Auto) 3.77 (1.80-7.00) 10^3/uL Lymph # (Auto) 1.92 (1.00-4.80) 10^3/uL [place] # (Auto) 0.65 (0.00-0.80) 10^3/uL Eos # (Auto) 0.13 (0.00-0.45) 10^3/uL Baso # (Auto) 0.01 10^3/uL PT 10.0 (9.7-12.3) SEC INR 0.97 (0.92-1.18) - Re-Assessments/Exams Free Text/Narrative Re-Assessment/Exam: 04/17/19 15:24 Delay in evaluating patient as provider already in ED and multiple patients in ED with higher acuity. Departure - Departure Time of Disposition: 15:31 Disposition: Home, Self-Care 01 Condition: Good Clinical Impression: Heavy menstrual bleeding Qualifiers: Menorrahagia type: with regular cycle Qualified Code(s): N92.0 - Excessive and frequent menstruation with regular cycle - Discharge Information *PRESCRIPTION DRUG MONITORING PROGRAM REVIEWED*: Not Applicable *COPY OF PRESCRIPTION DRUG MONITORING REPORT IN PATIENT GEORGE: Not Applicable Instructions: Dysmenorrhea, [id number] Referrals: PCP,None [Ordering Only Provider] - Forms: ED Department Discharge Additional Instructions: - Discussed with patient it can be normal to pass clots at times with menstrual cycle - Hemoglobin is stable - Rest and push fluids - Warmth to area as needed for cramping - Tylenol or ibuprofen as needed for pain - Follow up with PCP as needed
== END 2019-04-17 15:40 | disposition home or self-care (01) ==
LOC: CC.ED 14:19
DX: N92.0 Excessive and frequent menstruation with regular cycle (principal); E66.9 Obesity, unspecified; Z88.1 Allergy status to other antibiotic agents; Z88.8 Allergy status to other drugs, medicaments and biological substances; Z88.4 Allergy status to anesthetic agent; Z91.013 Allergy to seafood; Z68.39 Body mass index [BMI] 39.0-39.9, adult; Z87.891 Personal history of nicotine dependence
CPT/HCPCS: 36415; 85025; 85610; 99283

== ENCOUNTER 2020-07-27 01:01 | Emergency (ER) | payer MEDICAID ==
[2020-07-27 01:05] VITALS: BP 143/73; PULSE 117
[2020-07-27] MEDS ORDERED: methylPREDNISolone Sodium Succinate 125 MG/2 ML SDV IM STA (01:11)
--- NOTE | 2020-07-27 01:43 | EDM.PDOC ---
ED HPI GENERAL MEDICAL PROBLEM - General Chief Complaint: Allergic Reaction Stated Complaint: allergic reaction Time Seen by Provider: 07/27/20 01:26 Source of Information: Reports: Patient History Limitations: Reports: No Limitations - History of Present Illness INITIAL COMMENTS - FREE TEXT/NARRATIVE: Patient presents to ER with complaints of facial swelling that started at around midnight. Started noting tingling/itching in her face and "2 lumps". Swelling extended to her eyes and across the bridge of her nose. Has had reactions like this before but not as severe so did realize what was happening right away and took 2 Benadryl and a Zyrtec at home at that time. Boyers was getting worse so presented here. Boyers short of breath. No dysphagia. Has allergy to seafood but has not had any of that as of late. Started a medicine for "an ulcer about a week ago but has taken that med before as well". No new foods, lotions, hair products, etc. Onset: Today, Sudden Duration: Hour(s):, Getting Worse Location: Reports: Face Severity: Mild Associated Symptoms: Reports: Shortness of Breath. Denies: Confusion, Chest Pain, Cough, Diaphoresis, Fever/Chills, Nausea/Vomiting Treatments INDUSTRIAL TECHNICIAN: Reports: Other (see below) Other Treatments INDUSTRIAL TECHNICIAN: Benadryl, Zyrtek - Related Data Allergies Allergy/AdvReac Type Severity Reaction Status Date / Time azithromycin [From Zithromax] Allergy Nausea and Verified 04/17/19 14:22 Vomiting citalopram hydrobromide Allergy Shortness Verified 04/17/19 14:22 [From Celexa] of Breath lidocaine Allergy Respiratory Verified 04/17/19 14:22 Depression shellfish derived Allergy Facial Verified 07/27/20 01:06 Swelling shrimp Allergy Hives Uncoded 04/17/19 14:22 Home Meds: Home Meds Acetaminophen [Tylenol] 650 mg PO Q8H PRN 10/06/17 [History] Omeprazole 20 mg PO DAILY 07/27/20 [History] Sucralfate [Carafate] 1 tab PO TID 07/27/20 [History] Past Medical History - Past Health History Medical/Surgical History: Denies Medical/Surgical History HEENT History: Reports: Otitis Media Cardiovascular History: Reports: Arrhythmia Other Cardiovascular History: states "I was told I have an irregular heart rate." Is not on any medications for it. 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: Reports: Polycystic Ovaries, , Other (See Below) Other CD REACTOR OPERATOR History: cyst on right ovary Musculoskeletal History: Reports: Back Pain, Chronic, Fracture Neurological History: Reports: Concussion, Headaches, Chronic, Migraines Psychiatric History: Reports: Anxiety, Depression, Panic Attack Endocrine/Metabolic History: Reports: Obesity/BMI 30+ - Infectious Disease History Infectious Disease History: Reports: Other (See Below) Other Infectious Disease History: "staph infection" - Past Surgical History HEENT Surgical History: Reports: None Other HEENT Surgeries/Procedures: wisdom teeth removed Cardiovascular Surgical History: Reports: None Respiratory Surgical History: Reports: None GI Surgical History: Reports: Cholecystectomy, EGD Female Surgical History: Reports: Tubal Ligation Endocrine Surgical History: Reports: None Neurological Surgical History: Reports: None Musculoskeletal Surgical History: Reports: None Social & Family History - Family History Family Medical History: No Pertinent Family History Cardiac: Reports: Hypertension - Tobacco Use Tobacco Use Status *Q: Current Every Day Tobacco User Years of Tobacco use: 10 Packs/Tins Daily: 1 - Caffeine Use Caffeine Use: Reports: Coffee, Energy Drinks, Soda - Recreational Drug Use Recreational Drug Use: No - Living Situation & Occupation Living situation: Reports: with Family ED ROS ALLERGIC REACTION - Review of Systems Review Of Systems: See Below Constitutional: Denies: Fever, Chills, Malaise, Weakness, Fatigue HEENT: Denies: Ear Pain, Sinus Problem, Throat Pain, Throat Swelling Respiratory: Reports: Shortness of Breath. Denies: Wheezing, Cough Cardiovascular: Denies: Chest Pain, Edema, Lightheadedness Endocrine: Denies: Fatigue GI/Abdominal: Denies: Abdominal Pain, Nausea, Vomiting : Reports: No Symptoms Musculoskeletal: Reports: No Symptoms Skin: Reports: Other (swelling to face) Neurological: Reports: No Symptoms ED EXAM GENERAL NO PERIP PULSE - Physical Exam Exam: See Below Exam Limited By: No Limitations General Appearance: Alert, WD/WN, No Apparent Distress Ears: Normal External Exam, Normal TMs Nose: Normal Inspection, Normal Mucosa, No Blood Throat/Mouth: Normal Inspection, Normal Oropharynx Head: Normocephalic, Facial Swelling (left eye swollen nearly shut, has swelling to right upper and lower lid as well. Swelling across the bridge of her nose. ) Neck: Normal Inspection, Supple, Non-Tender Respiratory/Chest: No Respiratory Distress, Lungs Clear, Normal Breath Sounds Cardiovascular: Tachycardia Skin Exam: Warm, Dry Course - Vital Signs Last Recorded V/S: Last Vital Signs Temp 97.8 F 07/27/20 01:02 Pulse 117 H 07/27/20 01:02 Resp 18 07/27/20 01:02 BP 143/73 H 07/27/20 01:02 Pulse Ox 100 07/27/20 01:02 - Orders/Labs/Meds Meds: Medications Discontinued Medications Generic Name Dose Route Start Last Admin Trade Name Bridget PRN Reason Stop Dose Admin Methylprednisolone Sodium Succinate 125 mg 07/27/20 01:11 07/27/20 01:19 Solu-Medrol IM 07/27/20 01:12 125 mg NOW STA Administration - Re-Assessments/Exams Free Text/Narrative Re-Assessment/Exam: 07/27/20 01:45 Benadryl taken at right 90 minutes ago and Zyrtec. Solu Medrol given. Will observe here for next hour or so and if stable and improving, discharge home. Start prednisone tomorrow. Departure - Departure Time of Disposition: 01:46 Disposition: Home, Self-Care 01 Condition: Good Clinical Impression: Allergic reaction - Discharge Information *PRESCRIPTION DRUG MONITORING PROGRAM REVIEWED*: No *COPY OF PRESCRIPTION DRUG MONITORING REPORT IN PATIENT GEORGE: No Instructions: Allergies, Adult, [id number] Additional Instructions: 1. Rest 2. Benadryl 50 mg every 6 hours for next 24 hours (total of 4 doses) 3. Zyrtec 10 mg daily for at least one week 4. Prednisone 20 mg- 2 tabs daily for 4 days, start on 5. Follow up with primary care provider for persistent concerns. Sepsis Event Note (ED) - Evaluation Sepsis Screening Result: No Definite Risk - Focused Exam Vital Signs: Vital Signs Temp Pulse Resp BP Pulse Ox 07/27/20 01:02 97.8 F 117 H 18 143/73 H 100
== END 2020-07-27 02:45 | disposition home or self-care (01) ==
LOC: CC.ED 01:01
DX: T78.40XA Allergy, unspecified, initial encounter (principal); K21.9 Gastro-esophageal reflux disease without esophagitis; E66.9 Obesity, unspecified; Z68.42 Body mass index [BMI] 45.0-49.9, adult; Z88.1 Allergy status to other antibiotic agents; Z88.4 Allergy status to anesthetic agent; Z91.013 Allergy to seafood; Z88.8 Allergy status to other drugs, medicaments and biological substances; Z79.899 Other long term (current) drug therapy; Z72.0 Tobacco use
CPT/HCPCS: 96372; 99284; J2930

== ENCOUNTER 2020-08-20 11:14 | Emergency (ER) | payer MEDICAID ==
[2020-08-20 11:37] VITALS: BP 146/99; PULSE 133
[2020-08-20] MEDS ORDERED: Acetaminophen 500 MG Tab PO ONE (11:41)
[2020-08-20] MEDS ORDERED: cefTRIAXone 1 GM Vial IM ONE (11:45)
--- NOTE | 2020-08-20 11:50 | EDM.PDOC ---
ED HPI GENERAL MEDICAL PROBLEM - General Chief Complaint: General Stated Complaint: COVID symptoms Time Seen by Provider: 08/20/20 11:35 Source of Information: Reports: Patient History Limitations: Reports: No Limitations - History of Present Illness INITIAL COMMENTS - FREE TEXT/NARRATIVE: Sera is a 30 year old female who presents to ER with complaints of a sore throat, body aches and fever. States started to note pain with swallowing yesterday but has worsened this am. Did go to work today and started to note increased body aches and chills. Does have mild sinus congestion, no facial pain. No headache. Denies cough, shortness of breath, wheezing, nausea or vomiting. No diarrhea. Did take ibuprofen at 0900 today. Onset: Gradual Duration: Hour(s):, Getting Worse Location: Reports: Head Quality: Reports: Ache Severity: Moderate Associated Symptoms: Reports: Fever/Chills, Malaise. Denies: Confusion, Chest Pain, Cough, Loss of Appetite, Nausea/Vomiting, Shortness of Breath Treatments TIER OVER: Reports: NSAIDS Generalized Pain Score (Numeric/FACES): 5 - Related Data Allergies Allergy/AdvReac Type Severity Reaction Status Date / Time azithromycin [From Zithromax] Allergy Nausea and Verified 08/20/20 11:20 Vomiting citalopram hydrobromide Allergy Shortness Verified 08/20/20 11:20 [From Celexa] of Breath lidocaine Allergy Respiratory Verified 08/20/20 11:20 Depression shellfish derived Allergy Facial Verified 08/20/20 11:20 Swelling shrimp Allergy Hives Uncoded 08/20/20 11:20 Home Meds: Home Meds Acetaminophen [Tylenol] 650 mg PO Q8H PRN 10/06/17 [History] Omeprazole 20 mg PO DAILY 07/27/20 [History] Sucralfate [Carafate] 1 tab PO TID 07/27/20 [History] Past Medical History - Past Health History Medical/Surgical History: Denies Medical/Surgical History HEENT History: Reports: Otitis Media Cardiovascular History: Reports: Arrhythmia Other Cardiovascular History: states "I was told I have an irregular heart rate." Is not on any medications for it. 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: Reports: Polycystic Ovaries, , Other (See Below) Other AUDITOR History: cyst on right ovary Musculoskeletal History: Reports: Back Pain, Chronic, Fracture Neurological History: Reports: Concussion, Headaches, Chronic, Migraines Psychiatric History: Reports: Anxiety, Depression, Panic Attack Endocrine/Metabolic History: Reports: Obesity/BMI 30+ - Infectious Disease History Infectious Disease History: Reports: Other (See Below) Other Infectious Disease History: "staph infection" - Past Surgical History HEENT Surgical History: Reports: None Other HEENT Surgeries/Procedures: wisdom teeth removed Cardiovascular Surgical History: Reports: None Respiratory Surgical History: Reports: None GI Surgical History: Reports: Cholecystectomy, EGD Female Surgical History: Reports: Tubal Ligation Endocrine Surgical History: Reports: None Neurological Surgical History: Reports: None Musculoskeletal Surgical History: Reports: None Social & Family History - Family History Family Medical History: No Pertinent Family History Cardiac: Reports: Hypertension - Tobacco Use Tobacco Use Status *Q: Current Every Day Tobacco User Years of Tobacco use: 14 Packs/Tins Daily: 1 - Caffeine Use Caffeine Use: Reports: Soda - Recreational Drug Use Recreational Drug Use: No - Living Situation & Occupation Living situation: Reports: with Family ED ROS GENERAL - Review of Systems Review Of Systems: See Below Constitutional: Reports: Fever, Chills, Malaise, Fatigue. Denies: Decreased Appetite HEENT: Reports: Rhinitis, Throat Pain. Denies: Ear Pain, Sinus Problem, Vertigo Respiratory: Denies: Shortness of Breath, Cough Cardiovascular: Denies: Chest Pain, Edema, Lightheadedness Endocrine: Denies: Fatigue GI/Abdominal: Denies: Abdominal Pain, Nausea, Vomiting : Reports: No Symptoms Musculoskeletal: Reports: Other (myalgia) Skin: Reports: No Symptoms Neurological: Reports: No Symptoms Psychiatric: Reports: No Symptoms ED EXAM, GENERAL - Physical Exam Exam: See Below Exam Limited By: No Limitations General Appearance: Alert, WD/WN, No Apparent Distress Ears: Normal External Exam, Normal TMs Nose: Normal Inspection, Normal Mucosa, Clear Rhinorrhea Throat/Mouth: Other (posterior pharynx and tonsils are erythematous. Bilateral white patches noted to tonsils. Tonsillar hypertrophy noted.) Head: Normocephalic Neck: Normal Inspection, Supple, Lymphadenopathy (L), Lymphadenopathy (R) Respiratory/Chest: No Respiratory Distress, Lungs Clear, Normal Breath Sounds Cardiovascular: Regular Rate, Rhythm GI/Abdominal: Normal Bowel Sounds, Soft, Non-Tender Extremities: Normal Inspection, No Pedal Edema Neurological: Alert, Oriented Skin Exam: Warm, Dry Course - Vital Signs Last Recorded V/S: Last Vital Signs Temp 101.8 F H 08/20/20 11:35 Pulse 133 H 08/20/20 11:35 Resp 18 08/20/20 11:35 BP 146/99 H 08/20/20 11:35 Pulse Ox 98 08/20/20 11:35 - Orders/Labs/Meds Orders: Active Orders 24 hr Category Date Time Status Isolation [COMM] Routine Oth 08/20/20 11:33 Ordered Labs: Laboratory Tests 08/20/20 Range/Units 11:16 SARS CoV-2 RNA Rapid JERMAINE Negative (NEGATIVE) Meds: Medications Discontinued Medications Generic Name Dose Route Start Last Admin Trade Name Tyeq PRN Reason Stop Dose Admin Acetaminophen 1,000 mg 08/20/20 11:41 Tylenol Extra Strength PO 08/20/20 11:42 ONETIME ONE - Re-Assessments/Exams Free Text/Narrative Re-Assessment/Exam: 08/20/20 11:51 covid negative, influenza negative Departure - Departure Time of Disposition: 11:52 Disposition: Home, Self-Care 01 Condition: Fair Clinical Impression: Tonsillitis - Discharge Information *PRESCRIPTION DRUG MONITORING PROGRAM REVIEWED*: No *COPY OF PRESCRIPTION DRUG MONITORING REPORT IN PATIENT GEORGE: No Instructions: Tonsillitis Additional Instructions: 1. Rest 2. Push fluids 3. alternate tylenol with ibuprofen for fever or discomfort 4. May return back to work on Friday if afebrile for 24 hours 5. Amoxicillin 875 mg twice a day for 10 days 6. Follow up in the next week or so to have blood pressure rechecked at clinic 7. Call with any questions or concerns. Sepsis Event Note (ED) - Evaluation Sepsis Screening Result: No Definite Risk - Focused Exam Vital Signs: Vital Signs Temp Pulse Resp BP Pulse Ox 08/20/20 11:35 101.8 F H 133 H 18 146/99 H 98 - My Orders Last 24 Hours: My Active Orders 08/20/20 11:33 Isolation [COMM] Routine - Assessment/Plan Last 24 Hours: My Active Orders 08/20/20 11:33 Isolation [COMM] Routine
== END 2020-08-20 11:59 | disposition home or self-care (01) ==
LOC: CC.ED 11:14
DX: J03.90 Acute tonsillitis, unspecified (principal); Z79.899 Other long term (current) drug therapy; K21.9 Gastro-esophageal reflux disease without esophagitis; E66.9 Obesity, unspecified; Z68.41 Body mass index [BMI] 40.0-44.9, adult; Z20.822 Contact with and (suspected) exposure to COVID-19; Z88.1 Allergy status to other antibiotic agents; Z88.8 Allergy status to other drugs, medicaments and biological substances; Z88.4 Allergy status to anesthetic agent; Z91.013 Allergy to seafood; Z72.0 Tobacco use
CPT/HCPCS: 87804; 96372; 99283; A9270-GY; J0696; U0002

== ENCOUNTER 2021-03-09 21:37 | Emergency (ER) | payer OTHER, MEDICAID ==
[2021-03-09 21:58] VITALS: BP 146/94; PULSE 87
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
== END 2021-03-09 22:40 | disposition home or self-care (01) ==
LOC: CC.ED 21:37
DX: S20.211A Contusion of right front wall of thorax, initial encounter (principal); E66.9 Obesity, unspecified; Z72.0 Tobacco use; Z88.1 Allergy status to other antibiotic agents; Z91.018 Allergy to other foods; Z88.4 Allergy status to anesthetic agent; Z88.8 Allergy status to other drugs, medicaments and biological substances; Z68.42 Body mass index [BMI] 45.0-49.9, adult; Z20.822 Contact with and (suspected) exposure to COVID-19; V50.5XXA Driver of pick-up truck or van injured in collision with pedestrian or animal in traffic accident, initial encounter; Y92.410 Unspecified street and highway as the place of occurrence of the external cause
CPT/HCPCS: 71046; 99284-25; U0002

== ENCOUNTER 2021-07-11 11:50 | Emergency (ER) | payer MEDICAID ==
[2021-07-11 12:27] VITALS: BP 128/75; PULSE 68
[2021-07-11 12:40] LABS: CHLORIDE,CL 104 mEq/L (98-106); SODIUM,NA 142 mEq/L (136-145)
[2021-07-11] MEDS: methylPREDNISolone Sodium Succinate 125 MG/2 ML SDV IVPUSH STA (13:38)
== END 2021-07-11 14:04 | disposition home or self-care (01) ==
LOC: CC.ED 11:50
DX: M94.0 Chondrocostal junction syndrome [Tietze] (principal); K21.9 Gastro-esophageal reflux disease without esophagitis; E66.9 Obesity, unspecified; Z68.1 Body mass index [BMI] 19.9 or less, adult; Z88.4 Allergy status to anesthetic agent; Z88.5 Allergy status to narcotic agent; Z91.013 Allergy to seafood; Z88.1 Allergy status to other antibiotic agents; Z91.018 Allergy to other foods; Z79.899 Other long term (current) drug therapy
CPT/HCPCS: 36415; 71046; 80053; 84484; 85025; 86140; 93005; 96374; 99285-25; J2930

== ENCOUNTER 2021-12-06 22:26 | Emergency (ER) | payer MEDICAID ==
[2021-12-06 22:42] VITALS: PULSE 68
[2021-12-06 23:09] LABS: CHLORIDE,CL 105 mEq/L (98-106); ESTIMATED GFR > 60 mL/min (>=60); SODIUM,NA 142 mEq/L (136-145)
[2021-12-06 23:23] VITALS: BP 126/67
== END 2021-12-06 23:30 | disposition home or self-care (01) ==
LOC: CC.ED 22:26
DX: R07.89 Other chest pain (principal); I10 Essential (primary) hypertension; K21.9 Gastro-esophageal reflux disease without esophagitis; Z79.899 Other long term (current) drug therapy; Z88.1 Allergy status to other antibiotic agents; Z88.5 Allergy status to narcotic agent; Z88.4 Allergy status to anesthetic agent; Z88.8 Allergy status to other drugs, medicaments and biological substances; Z91.030 Bee allergy status; Z91.018 Allergy to other foods
CPT/HCPCS: 36415; 71046; 80053; 84484; 85025; 93005; 99283; 99285-25

== ENCOUNTER 2022-09-19 09:57 | Emergency (ER) | payer MEDICAID ==
[2022-09-19] MEDS ORDERED: Aluminum Hydroxide/Magnesium Hydroxide/Simethicone Susp 30 ML Cup PO ONE (10:16)
[2022-09-19] MEDS ORDERED: Diltiazem 25 MG/5 ML SDV IVPUSH ONE (10:23)
[2022-09-19] MEDS: Aspirin 81 MG Tab.Chew PO ONE (10:24)
[2022-09-19] MEDS: Sodium Chloride 0.9% 1,000 ML IV ONE (10:25)
[2022-09-19 10:47] LABS: CHLORIDE,CL 103 mEq/L (98-106); ESTIMATED GFR 77 mL/min (>=60); SODIUM,NA 139 mEq/L (136-145)
[2022-09-19 11:14] VITALS: BP 127/82
[2022-09-19 11:43] VITALS: PULSE 98
== END 2022-09-19 11:35 | disposition home or self-care (01) ==
LOC: CC.ED 09:57
DX: I47.1 Supraventricular tachycardia (principal); R63.8 Other symptoms and signs concerning food and fluid intake; K21.9 Gastro-esophageal reflux disease without esophagitis; E66.9 Obesity, unspecified; Z88.1 Allergy status to other antibiotic agents; Z88.5 Allergy status to narcotic agent; Z91.013 Allergy to seafood; Z91.018 Allergy to other foods; Z88.8 Allergy status to other drugs, medicaments and biological substances; Z79.899 Other long term (current) drug therapy; Z68.41 Body mass index [BMI] 40.0-44.9, adult
CPT/HCPCS: 36415; 80053; 81003; 84484; 85025; 93005; 96360; 99285-25; A9270-GY; J7030

== ENCOUNTER 2022-09-22 09:48 | Emergency (ER) | payer MEDICAID ==
[2022-09-22 09:52] VITALS: BP 136/77; PULSE 76
[2022-09-22] MEDS: Meclizine 12.5 MG Tab PO ONE (10:02)
[2022-09-22] MEDS: hydrOXYzine HCl 25 MG Tab PO ONE (10:03)
== END 2022-09-22 11:45 | disposition home or self-care (01) ==
LOC: CC.ED 09:48
DX: R42 Dizziness and giddiness (principal); E66.9 Obesity, unspecified; Z68.41 Body mass index [BMI] 40.0-44.9, adult; Z88.1 Allergy status to other antibiotic agents; Z88.5 Allergy status to narcotic agent; Z88.4 Allergy status to anesthetic agent; Z91.013 Allergy to seafood; Z91.018 Allergy to other foods
CPT/HCPCS: 82947; 99284; A9270-GY